=== PATIENT | female | born 1950 | race Caucasian/White ===

== ENCOUNTER → 2017-01-02 | Outpatient (CLI) | payer MEDICARE, OTHER ==
[~2017-01-02] MED LIST: BONIVA2.5 MG PO; SLOW FE45 MG PO; TYLENOL 325MG325 MG PO
== END ==
LOC: MC.RAD 12-27 17:00
DX: Z12.31 Encounter for screening mammogram for malignant neoplasm of breast (principal); D24.2 Benign neoplasm of left breast; D24.1 Benign neoplasm of right breast; Z85.3 Personal history of malignant neoplasm of breast

== ENCOUNTER → 2018-06-18 | Outpatient (CLI) | payer MEDICARE, OTHER | LOC: MC.RAD 13:19 | DX: Z12.31 Encounter for screening mammogram for malignant neoplasm of breast (principal); Z85.3 Personal history of malignant neoplasm of breast; Z98.890 Other specified postprocedural states; Z90.11 Acquired absence of right breast and nipple; Z92.3 Personal history of irradiation ==

== ENCOUNTER → 2019-08-09 | Outpatient (CLI) | payer MEDICARE, OTHER | LOC: MC.RAD 10:32 | DX: Z12.31 Encounter for screening mammogram for malignant neoplasm of breast (principal); Z98.890 Other specified postprocedural states ==